=== PATIENT | female | born 2000 | race Caucasian/White ===

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

== ENCOUNTER 2022-02-14 00:20 | Emergency (ER) | payer MEDICAID ==
[2022-02-14] MEDS ORDERED: Sodium Chloride 0.9% 10 ML Syringe FLUSH PRN (00:37)
[2022-02-14] MEDS ORDERED: Sodium Chloride 0.9% 2.5 ML Syringe FLUSH PRN (00:37)
[2022-02-14 01:24] LABS: CARBON DIOXIDE,CO2 26.2 mmol/L (21.0-32.0)
[2022-02-14 01:43] LABS: CORONAVIRUS COVID-19 NAA NEGATIVE (NEGATIVE); INFLUENZA A NAA NEGATIVE (NEGATIVE); INFLUENZA B NAA NEGATIVE (NEGATIVE)
== END 2022-02-14 02:52 | disposition home or self-care (01) ==
LOC: MW.ED 00:20
DX: R10.11 Right upper quadrant pain (principal); Z20.822 Contact with and (suspected) exposure to COVID-19
CPT/HCPCS: 0240U; 36415; 59025; 80053; 83690; 85025; 93005; 99284; J3490

== ENCOUNTER 2022-03-22 06:32 | Inpatient (IN) | payer MEDICAID ==
[2022-03-22] MEDS ORDERED: Ondansetron 4 MG/2 ML SDV IVPUSH PRN (07:25)
[2022-03-22] MEDS ORDERED: Sodium Chloride 0.9% 2.5 ML Syringe FLUSH PRN (07:25)
[2022-03-22] MEDS ORDERED: Sodium Chloride 0.9% 20 ML SDV IV PRN (07:25)
[2022-03-22] MEDS ORDERED: Lidocaine 1% 50 ML MDV INJECT PRN (07:25)
[2022-03-22] MEDS ORDERED: Methylergonovine 0.2 MG/1 ML Amp IM PRN (07:25)
[2022-03-22] MEDS ORDERED: Misoprostol 200 MCG Tab PO PRN (07:25)
[2022-03-22] MEDS ORDERED: Tranexamic Acid 1,000 MG in Sodium Chloride 0.9% 100 ML IV PRN (07:25)
[2022-03-22] MEDS ORDERED: Sodium Chloride 0.9% 10 ML Syringe FLUSH PRN (07:25)
[2022-03-22] MEDS ORDERED: Butorphanol 1 MG/ML SDV IVPUSH PRN (07:25)
[2022-03-22] MEDS ORDERED: Carboprost Tromethamine 250 MCG/1 ML Amp IM PRN (07:25)
[2022-03-22] MEDS ORDERED: Water For Irrigation,Sterile 1,000 ML Container IRR PRN (07:25)
[2022-03-22] MEDS ORDERED: Lactated Ringers 1,000 ML IV SCH (07:30)
[2022-03-22] MEDS ORDERED: Oxytocin/0.9 % Sodium Chloride 30 UNIT/500 ML BAG IV SCH (07:30)
[2022-03-22] MEDS ORDERED: fentaNYL 100 MCG/2 ML SDV ONE (08:55)
[2022-03-22] MEDS ORDERED: ePHEDrine 50 MG/ML SDV IVPUSH PRN ×2 (09:20)
[2022-03-22] MEDS ORDERED: Ropivacaine HCl/PF 400 MG in Premix Bag 1 BAG EPIDUR SCH (09:30)
[2022-03-22] MEDS ORDERED: Bisacodyl 10 MG Supp RECTAL PRN (15:13)
[2022-03-22] MEDS ORDERED: Lanolin 100% Cream 7 GM Tube TOP PRN (15:13)
[2022-03-22] MEDS ORDERED: Witch Hazel Medicated Pads 40/Jar TOP PRN (15:13)
[2022-03-22] MEDS ORDERED: Ibuprofen 400 MG Tab PO PRN (15:13)
[2022-03-22] MEDS ORDERED: oxyCODONE 5 MG Tab PO PRN (15:13)
[2022-03-22] MEDS ORDERED: Benzocaine/Menthol 20%-0.5% Spray 78 GM Cannister TOP PRN (15:13)
[2022-03-22] MEDS ORDERED: Acetaminophen 500 MG Tab PO PRN ×2 (15:13)
[2022-03-22] MEDS ORDERED: Docusate Sodium 100 MG Cap PO PRN (15:13)
[2022-03-22] MEDS: Ibuprofen 800 MG Tab PO PRN (17:29)
[2022-03-23] MEDS: Ibuprofen 800 MG Tab PO PRN ×2 (04:01→14:42)
== END 2022-03-23 17:20 | disposition home or self-care (01) | DRG 807 ==
LOC: MW.OBCHECK 06:32 → MW.OB 06:34 → MW.OBCHECK 07:24 → MW.OB 07:25 → OBSVTOIN 14:41 → MW.OB 17:49
PROVIDERS: ADMIT Obstetrics & Gynecology; ATTEND Obstetrics & Gynecology
PROC: 10D07Z6 Extraction of Products of Conception, Vacuum, Via Natural or Artificial Opening (ICD-10-PCS; principal; 2022-03-22)
PROC: 0HQ9XZZ Repair Perineum Skin, External Approach (ICD-10-PCS; 2022-03-22)
PROC: 10907ZC Drainage of Amniotic Fluid, Therapeutic from Products of Conception, Via Natural or Artificial Opening (ICD-10-PCS; 2022-03-22)
PROC: 00HU33Z Insertion of Infusion Device into Spinal Canal, Percutaneous Approach (ICD-10-PCS; 2022-03-22)
PROC: 3E0R3BZ Introduction of Anesthetic Agent into Spinal Canal, Percutaneous Approach (ICD-10-PCS; 2022-03-22)
DX: O77.0 Labor and delivery complicated by meconium in amniotic fluid (principal); Z37.0 Single live birth; Z3A.38 38 weeks gestation of pregnancy; Z20.822 Contact with and (suspected) exposure to COVID-19; O70.0 First degree perineal laceration during delivery
CPT/HCPCS: 01967; 36415; 51702; 59025; 59409; 85014; 85018; 85027; 86592; 86850; 86900; 86901; A9270-GY; J2795; J3010; J7120; U0002

== ENCOUNTER 2022-03-30 02:44 | Emergency (ER) | payer MEDICAID ==
[2022-03-30] MEDS ORDERED: Sodium Chloride 0.9% 1,000 ML IV ONE ×2 (03:07→05:00)
[2022-03-30] MEDS ORDERED: Ketorolac 30 MG/ML SDV IVPUSH ONE (03:07)
[2022-03-30] MEDS ORDERED: Acetaminophen 500 MG Tab PO ONE (03:07)
[2022-03-30] MEDS ORDERED: Ondansetron 4 MG/2 ML SDV IVPUSH ONE (03:07)
[2022-03-30] MEDS ORDERED: Sodium Chloride 0.9% 2.5 ML Syringe FLUSH PRN (03:07)
[2022-03-30] MEDS ORDERED: Sodium Chloride 0.9% 10 ML Syringe FLUSH PRN (03:07)
[2022-03-30] MEDS ORDERED: cefTRIAXone 1 GM in Sodium Chloride 0.9% 50 ML IV ONE (03:09)
[2022-03-30 04:04] LABS: CARBON DIOXIDE,CO2 22.4 mmol/L (21.0-32.0); POTASSIUM,K 3.6 mmol/L (3.5-5.1)
[2022-03-30 04:27] LABS: CORONAVIRUS COVID-19 NAA NEGATIVE (NEGATIVE); INFLUENZA A NAA NEGATIVE (NEGATIVE); INFLUENZA B NAA NEGATIVE (NEGATIVE); RESPIRATORY SYNCYTIAL VIR NAA NEGATIVE (NEGATIVE)
== END 2022-03-30 06:31 | disposition home or self-care (01) ==
LOC: MW.ED 02:44
DX: O86.20 Urinary tract infection following delivery, unspecified (principal); N39.0 Urinary tract infection, site not specified; O86.4 Pyrexia of unknown origin following delivery; I10 Essential (primary) hypertension; Z20.822 Contact with and (suspected) exposure to COVID-19
CPT/HCPCS: 0241U; 36415; 71045; 80053; 81001; 83605; 83690; 85025; 87040; 96361; 96365; 96375; 99283; A9270; J0696; J1885; J2405; J3490; J7030

== ENCOUNTER 2023-03-27 23:54 | Emergency (ER) | payer SELFPAY ==
[2023-03-28] MEDS ORDERED: Acetaminophen 325 MG Tab PO ONE (00:25)
== END 2023-03-28 01:35 | disposition home or self-care (01) ==
LOC: MW.ED 23:54
DX: S93.401A Sprain of unspecified ligament of right ankle, initial encounter (principal); X50.1XXA Overexertion from prolonged static or awkward postures, initial encounter
CPT/HCPCS: 73610; 99283; A9270